=== PATIENT | male | born 1990 | race Caucasian/White ===

== ENCOUNTER 2018-04-14 18:40 | Emergency (ER) | payer OTHER ==
[~2018-04-14] VITALS: Ht 175.3 cm; Wt 124.7 kg
[2018-04-14] MEDS ORDERED: PROMETHAZINE D118 ML (18:50)
[2018-04-14] MEDS ORDERED: AZITHROMYCIN500 MG (18:50)
[2018-04-14] MEDS ORDERED: SOLU-MEDRO125 MG/2 M (18:51)
[2018-04-15] MEDS ORDERED: ALBUTEROL2.5 MG/3 M IH (03:22)
[2018-04-15] MEDS ORDERED: QVAR8.7 G1 IH (03:22)
[2018-04-15] MEDS ORDERED: ZYNCOF 20-400120 ML PO (03:22)
== END 2018-04-15 03:38 | disposition home or self-care (01) ==
LOC: ER 18:40
DX: J45.998 Other asthma (principal)

== ENCOUNTER 2018-04-17 11:45 | Emergency (ER) | payer OTHER ==
[~2018-04-17] VITALS: Ht 175.3 cm; Wt 122.5 kg
[~2018-04-17 11:45] MED LIST: ALBUTEROL2.5 MG/3 M IH; AZITHROMYCIN500 MG; PROMETHAZINE D118 ML; QVAR8.7 G1 IH; SOLU-MEDRO125 MG/2 M; ZYNCOF 20-400120 ML PO
== END 2018-04-17 23:26 | disposition home or self-care (01) ==
LOC: ER 11:45
DX: J45.998 Other asthma (principal)

== ENCOUNTER → 2019-01-11 | Emergency (ER) | payer OTHER ==
[~2019-01-11] VITALS: Ht 175.3 cm; Wt 127.0 kg
== END | disposition left against medical advice (07) ==
LOC: ER 12:17
DX: Z53.20 Procedure and treatment not carried out because of patient's decision for unspecified reasons (principal)

== ENCOUNTER → 2019-01-19 | Emergency (ER) | payer OTHER ==
[~2019-01-19] VITALS: Ht 175.3 cm; Wt 127.0 kg
== END | disposition home or self-care (01) ==
LOC: ER 10:27
DX: R21 Rash and other nonspecific skin eruption (principal)

== ENCOUNTER 2019-10-26 15:45 | Emergency (ER) | payer OTHER ==
[~2019-10-26] VITALS: Ht 175.3 cm; Wt 136.1 kg
[2019-10-27] MEDS ORDERED: TESSALON PERLE100 M1 PO (13:29)
[2019-10-27] MEDS ORDERED: ZITHROMAX500 MG PO (13:29)
== END 2019-10-27 13:57 | disposition home or self-care (01) ==
LOC: ER 15:45
DX: J40 Bronchitis, not specified as acute or chronic (principal); B96.0 Mycoplasma pneumoniae [M. pneumoniae] as the cause of diseases classified elsewhere

== ENCOUNTER 2020-01-11 23:11 | Emergency (ER) | payer OTHER ==
[~2020-01-11] VITALS: Ht 175.3 cm; Wt 145.1 kg
[~2020-01-11 23:11] MED LIST changes: +TESSALON PERLE100 M1 PO; +ZITHROMAX500 MG PO
[2020-01-11] MEDS ORDERED: LOSARTAN POTAS100 MG (23:38)
[2020-01-11] MEDS ORDERED: HYDROCHLOROTHIA25 MG (23:38)
[2020-01-12] MEDS ORDERED: HYDROCHLOROTHIA25 MG PO (06:03)
[2020-01-12] MEDS ORDERED: COZAAR100 MG PO (06:03)
== END 2020-01-12 06:14 | disposition home or self-care (01) ==
LOC: ER 23:11
DX: I16.0 Hypertensive urgency (principal); I10 Essential (primary) hypertension

== ENCOUNTER 2020-11-11 06:08 | Emergency (ER) | payer OTHER ==
[~2020-11-11] VITALS: Ht 175.3 cm; Wt 127.0 kg
[~2020-11-11 06:08] MED LIST changes: +COZAAR100 MG PO; +HYDROCHLOROTHIA25 MG; +HYDROCHLOROTHIA25 MG PO; +LOSARTAN POTAS100 MG
[2020-11-11] MEDS ORDERED: LEVSIN/SL0.125 MG SL (14:09)
[2020-11-11] MEDS ORDERED: KETO10TA2 PO (14:09)
== END 2020-11-11 14:23 | disposition home or self-care (01) ==
LOC: ER 06:08
DX: R10.84 Generalized abdominal pain (principal); Z03.818 Encounter for observation for suspected exposure to other biological agents ruled out

== ENCOUNTER 2023-12-04 22:58 | Emergency (ER) | payer OTHER ==
[~2023-12-04] VITALS: Ht 175.3 cm; Wt 154.2 kg
[~2023-12-04 22:58] MED LIST changes: +KETO10TA2 PO; +LEVSIN/SL0.125 MG SL
[2023-12-05 05:17] LABS: HEMATOCRIT 44.8 % (39.0-48.0); HEMOGLOBIN 15.6 g/dL (13-16.00); MEAN CELL VOLUME 88.2 fL (80.0-100.00); MEAN CORPUSCULAR HEMOGLOBIN 30.6 pg (27.00-32.0); MEAN CORPUSCULAR HGB CONC 34.7 g/dl (32.0-36.0); PLATELET COUNT 211 K/uL (150-450); RED BLOOD COUNT 5.08 M/uL (4.00-6.00); RED CELL DISTRIBUTION WIDTH 13.8 % (11.5-14.5)
[2023-12-05 05:32] LABS: INR 0.99; PARTIAL THROMBOPLASTIN TIME 29.5 SECONDS (22.0-34.0); PROTHROMBIN TIME 10.4 SECONDS (9.0-11.5)
[2023-12-05 05:37] LABS: ALBUMIN 4.4 gm/dL (3.4-5.0); BILIRUBIN TOTAL 0.86 mg/dL (0.3-1.2); CALCIUM 9.6 mg/dL (8.5-10.1); CREATININE SERUM 1.09 mg/dL (0.70-1.30); GFR 76.98; GLOBULINA 3.6 G/DL (2.4-3.5); POTASSIUM 4.39 mEq/L (3.5-5.1)
[2023-12-05 06:29] LABS: PH,URINE 6.5 (5.0-8.0); URINE APPEARANCE Clear; URINE BILIRRUBIN Negative (NEGATIVE); URINE BLOOD Negative; URINE COLOR Yellow; URINE GLUCOSE Negative (NEGATIVE); URINE LEUKOCYTE Trace; URINE NITRATE Negative; URINE PROTEIN Negative (NEGATIVE); URINE UROBILINOGEN 0.2 E.U./dl
[2023-12-05 06:34] LABS: URINE BACTERIA 245.6 uL (0.0-1933); URINE EPITHELIAL CELLS 21.4 uL (0.0-38.8); URINE RBC 7.4 uL (0.0-20.8); URINE WBC 7.8 uL (0.0-23.2)
[2023-12-05] MEDS ORDERED: ONDANSETRON ODT8 MG PO (08:57)
[2023-12-05] MEDS ORDERED: LEVSIN/SL0.125 MG SL (08:57)
[2023-12-05] MEDS ORDERED: INTESTINEX680 M1 PO (08:57)
== END 2023-12-05 09:09 ==
LOC: ER 22:59
PROVIDERS: General Practice
DX: S01.81XA Laceration without foreign body of other part of head, initial encounter (principal); W19.XXXA Unspecified fall, initial encounter; Y93.89 Activity, other specified; Y92.091 Bathroom in other non-institutional residence as the place of occurrence of the external cause; Y99.8 Other external cause status; R55 Syncope and collapse; R10.9 Unspecified abdominal pain; I10 Essential (primary) hypertension